=== PATIENT | male | born 1955 | race Caucasian/White ===

== ENCOUNTER 2017-01-29 08:08 | Day surgery (SDC) | payer BC ==
[~2017-01-29] VITALS: Ht 172.7 cm; Wt 101.7 kg
[2017-01-29 09:01] VITALS: BP 171/92; PULSE 83; TEMP 98.4
[2017-01-29] MEDS ORDERED: NORVASC 5MG5 MG/TAB PO (09:24)
[2017-01-29] MEDS ORDERED: PROAIR HFA0.09 MG/AC IH (09:25)
[2017-01-29] MEDS ORDERED: COREG 6.256.25 MG/TA PO (09:26)
[2017-01-29] MEDS ORDERED: MUCINEX 60600 MG/TA1 PO (09:26)
[2017-01-29 12:10] VITALS: BP 143/103; PULSE 82; TEMP 98.3
[2017-01-29 12:25] VITALS: BP 157/93; PULSE 84
[2017-01-29 12:40] VITALS: BP 147/74; PULSE 75
[2017-01-29 12:55] VITALS: BP 157/83; PULSE 79
[2017-01-29 13:47] LABS: PLEURAL FLUID - PMN 0.7 % (0-25)
[2017-01-29 14:26] LABS: GLUCOSE,PLEURAL FLUID 112 mg/dL
[2017-01-29 15:12] LABS: PLEURAL FLUID LEFT SIDE; PLEURAL FLUID APPEARANCE CLEAR; PLEURAL FLUID COLOR YELLOW
[2017-01-29 15:24] VITALS: BP 162/89; PULSE 76
== END 2017-01-29 13:35 | disposition home or self-care (01) ==
LOC: SDCO 08:08
PROVIDERS: Internal Medicine Pulmonary Disease
DX: R09.1 Pleurisy (principal); R06.02 Shortness of breath; Z87.01 Personal history of pneumonia (recurrent)
CPT/HCPCS: 19804

== ENCOUNTER → 2017-06-05 | Outpatient (CLI) | payer BC ==
[~2017-06-05] MED LIST: COREG 6.256.25 MG/TA PO; MUCINEX 60600 MG/TA1 PO; NORVASC 5MG5 MG/TAB PO; PROAIR HFA0.09 MG/AC IH
[2017-06-05 09:37] LABS: BASO # 0.1 (0.0-0.2); BASO % 0.9 % (0.0-2.0); EOS # 0.3 (0.0-0.7); EOS % 3.7 % (0-4.0); GRAN # 5.3 (1.4-6.5); GRAN % 63.3 % (42.2-75.2); HEMOGLOBIN 15.1 g/dl (13.5-18.0); LYMPH # 1.7 (1.2-3.4); LYMPH % 19.7 % (20.0-51.0); MEAN CELL VOLUME 87 fl (80.0-100.0); MEAN CORPUSCULAR HEMOGLOBIN 29 pg (27.0-31.0); MEAN CORPUSCULAR HGB CONC 34 g/dl (33.0-37.0); MEAN PLATELET VOLUME 9.4 fl (7.4-10.4); MONO % 11.9 % (1.7-9.3); PLATELET COUNT 236 K/mm3 (130-400); RED BLOOD COUNT 5.18 M/mm3 (4.20-5.60); REDCELL DISTRIBUTION WIDTH-CV 12.9 % (11.5-14.5); WHITE BLOOD COUNT 8.4 K/mm3 (4.8-10.8)
[2017-06-05 09:59] LABS: ADJUSTED CALCIUM 9.8 mg/dL (8.4-10.2); ALBUMIN 4.1 gm/dL (3.5-5.0); CALCIUM 9.9 mg/dL (8.4-10.2); CREATININE, serum 0.92 mg/dL (0.66-1.25); POTASSIUM 3.9 mmol/L (3.4-5.0); TOTAL PROTEIN 7.6 gm/dL (6.4-8.2)
== END ==
LOC: COL.LAB 08:20
PROVIDERS: Internal Medicine Pulmonary Disease
DX: R06.02 Shortness of breath (principal)

== ENCOUNTER → 2017-12-22 | Outpatient (CLI) | payer BC ==
[2017-12-22 14:09] LABS: BASO # 0.1 (0.0-0.2); BASO % 1.1 % (0.0-2.0); EOS # 0.4 (0.0-0.7); EOS % 4.9 % (0-4.0); GRAN # 4.4 (1.4-6.5); GRAN % 60.9 % (42.2-75.2); HEMATOCRIT 46.3 % (42.0-52.0); HEMOGLOBIN 15.2 g/dl (13.5-18.0); LYMPH # 1.4 (1.2-3.4); MEAN CELL VOLUME 91 fl (80.0-100.0); MEAN CORPUSCULAR HEMOGLOBIN 30 pg (27.0-31.0); MEAN CORPUSCULAR HGB CONC 33 g/dl (33.0-37.0); MEAN PLATELET VOLUME 8.7 fl (7.4-10.4); MONO # 0.9 (0.1-0.6); MONO % 12.8 % (1.7-9.3); PLATELET COUNT 221 K/mm3 (130-400); RED BLOOD COUNT 5.09 M/mm3 (4.20-5.60); REDCELL DISTRIBUTION WIDTH-CV 12.3 % (11.5-14.5)
[2017-12-22 23:55] LABS: PROCALCITONIN 0.03 ng/mL (0.00-0.09)
== END ==
LOC: COL.LAB 13:32
PROVIDERS: Internal Medicine Pulmonary Disease
DX: J90 Pleural effusion, not elsewhere classified (principal)

== ENCOUNTER → 2017-12-26 | Outpatient (CLI) | payer BC | LOC: COL.LAB 13:04 | DX: R06.02 Shortness of breath (principal) ==

== ENCOUNTER → 2017-12-29 | Outpatient (CLI) | payer BC ==
[2017-12-29 14:47] LABS: BASO # 0.1 (0.0-0.2); BASO % 0.8 % (0.0-2.0); EOS # 0.3 (0.0-0.7); GRAN # 5.3 (1.4-6.5); GRAN % 63.1 % (42.2-75.2); HEMATOCRIT 43.3 % (42.0-52.0); LYMPH % 23.5 % (20.0-51.0); MEAN CELL VOLUME 89 fl (80.0-100.0); MEAN CORPUSCULAR HEMOGLOBIN 31 pg (27.0-31.0); MEAN CORPUSCULAR HGB CONC 35 g/dl (33.0-37.0); MEAN PLATELET VOLUME 8.9 fl (7.4-10.4); MONO # 0.7 (0.1-0.6); MONO % 8.2 % (1.7-9.3); PLATELET COUNT 256 K/mm3 (130-400); RED BLOOD COUNT 4.88 M/mm3 (4.20-5.60); REDCELL DISTRIBUTION WIDTH-CV 12.2 % (11.5-14.5)
== END ==
LOC: COL.LAB 14:14
PROVIDERS: Internal Medicine Pulmonary Disease
DX: J90 Pleural effusion, not elsewhere classified (principal)

== ENCOUNTER 2018-01-21 11:00 | Outpatient (RCR) | payer BC | END 2018-04-19 | disposition home or self-care (01) | LOC: WSST | DX: R13.14 Dysphagia, pharyngoesophageal phase (principal); R93.8 Abnormal findings on diagnostic imaging of other specified body structures ==

== ENCOUNTER → 2018-01-21 | Outpatient (CLI) | payer BC | LOC: COL.RAD 10:45 | DX: R47.02 Dysphasia (principal) ==